=== PATIENT | male | born 1990 | race Hispanic/Latino ===

== ENCOUNTER 2022-05-23 19:21 | Emergency (ER) | payer SELFPAY ==
[2022-05-23] MEDS ORDERED: Lidocaine 1% w/Epinephrine 1:100K 20 ML VIAL ONE (19:33)
[2022-05-23] MEDS ORDERED: Boostrix 0.5 ML (Tdap) VIAL (>/=7 yrs of age) ONE (21:37)
== END 2022-05-23 22:10 | disposition home or self-care (01) ==
LOC: ERS 19:21
DX: S01.81XA Laceration without foreign body of other part of head, initial encounter (principal); W26.9XXA Contact with unspecified sharp object(s), initial encounter; Z23 Encounter for immunization
CPT/HCPCS: 12017; 90471; 90715

== ENCOUNTER 2022-06-02 21:14 | Emergency (ER) | payer SELFPAY | END 2022-06-02 22:30 | disposition home or self-care (01) | LOC: ERS 21:14 | DX: S01.81XD Laceration without foreign body of other part of head, subsequent encounter (principal); W10.0XXD Fall (on)(from) escalator, subsequent encounter ==